=== PATIENT | male | born 1995 | race Hispanic/Latino ===

== ENCOUNTER 2019-12-09 12:24 | Emergency (ER) | payer OTHER, SELFPAY ==
--- NOTE | 2019-12-09 13:37 | RAD ---
LEFT SHOULDER THREE VIEWS: HISTORY: Injury. COMPARISON: None. FINDINGS: No acute displaced fracture or malalignment. The ribs are intact. Possible Hill-Sachs deformity of the posterolateral the humeral head. IMPRESSION: Possible Hill-Sachs deformity of the posterolateral humeral head. A CT or MRI may be beneficial. This would indicate a recent or prior anterior shoulder dislocation. POS: [facility]
== END 2019-12-09 14:13 | disposition home or self-care (01) ==
LOC: ERS 12:24
DX: S43.015A Anterior dislocation of left humerus, initial encounter (principal); X50.1XXA Overexertion from prolonged static or awkward postures, initial encounter

== ENCOUNTER 2020-11-14 12:28 | Emergency (ER) | payer SELFPAY ==
[2020-11-14] MEDS ORDERED: Lidocaine 4% Cream 5 GM TUBE w/ Tegaderm ONE (13:29)
--- NOTE | 2020-11-14 14:08 | RAD ---
RIGHT HAND 3 VIEWS: HISTORY: Pain following an injury, laceration. COMPARISON: 12/30/2014. FINDINGS: Minimal stable deformity and foreshortening of the 5th metatarsal. Evidence for prior injury. No ev idence for acute fracture or dislocation. There is evidence for soft tissue swelling with a small digna dy within the soft tissues dorsally at the level of the proximal interphalangeal joint of the index f nanette. IMPRESSION: Soft tissue injury at the dorsal aspect of the proximal interphalangeal joint of the index finger wit h probable very tiny foreign body. POS: [facility]
== END 2020-11-14 15:26 | disposition left against medical advice (07) ==
LOC: ERS 12:28
DX: Z53.21 Procedure and treatment not carried out due to patient leaving prior to being seen by health care provider (principal)